=== PATIENT | male | born 1975 | race Caucasian/White ===

== ENCOUNTER 2019-08-24 14:03 | Outpatient (CLI) | payer BC ==
--- NOTE | 2019-08-24 15:39 | RAD ---
RIGHT ELBOW 4 VIEWS: HISTORY: Elbow pain. FINDINGS: No evidence of fracture. No evidence of joint effusion. No osseous abnormality identified. IMPRESSION: Unremarkable right elbow. POS: C
== END 2019-08-24 14:04 | disposition home or self-care (01) ==
LOC: BICRAD 14:03
PROVIDERS: ATTEND Physician Assistant
DX: M25.521 Pain in right elbow (principal)

== ENCOUNTER 2023-12-09 11:32 | Emergency (ER) | payer BC ==
[2023-12-09] MEDS ORDERED: Acetaminophen 500 MG TAB ONE (12:12)
[2023-12-09] MEDS ORDERED: Boostrix 0.5 ML (Tdap) VIAL (>/=7 yrs of age) ONE (12:12)
[2023-12-09] MEDS ORDERED: Amoxicillin/Potassium Clav 875 MG TAB ONE (12:25)
== END 2023-12-09 13:09 | disposition home or self-care (01) ==
LOC: ERS 11:32
DX: S09.90XA Unspecified injury of head, initial encounter (principal); Z55.6 Problems related to health literacy; Z23 Encounter for immunization; Y04.0XXA Assault by unarmed brawl or fight, initial encounter
CPT/HCPCS: 70450; 90471; 90715; 93005